=== PATIENT | male | born 1980 | race Hispanic/Latino ===

== ENCOUNTER 2021-09-28 09:57 | Emergency (ER) | payer SELFPAY ==
[2021-09-28] MEDS ORDERED: IBUPROFEN 400 MG TAB ONE (10:58)
--- NOTE | 2021-09-28 11:17 | RAD REPORT ---
EXAM DESCRIPTION: RAD - Wrist Left 3 View - 09/28/2021 11:09 am CLINICAL HISTORY: Left wrist pain FINDINGS: No fracture or dislocation is seen. No bone or joint abnormality seen
--- NOTE | 2021-09-28 11:38 | EDPHYS ---
Physician Documentation [facility] Name: Deonte Vera Age: 41 yrs Sex: Male : 1980 Arrival Date: 09/28/2021 Time: 10:13 Bed 10 Private MD: Mukul Eli HPI: 09/28 10:50 This 41 yrs old Male presents to ER via Ambulatory with complaints of Wrist cp Pain. 10:50 The patient or guardian reports pain, tenderness. Context: resulted from an unknown cp cause. 10:50 Onset: The symptoms/episode began/occurred 2 week(s) ago. cp 10:50 Modifying factors: the symptoms are aggravated by movement. Associated signs and cp symptoms: Pertinent negatives: cyanosis distally, decreased sensation distally. Patient c/o pain, tenderness to radial side of left wrist. Historical: - Allergies: 10:17 No Known Allergies; ap3 - Home Meds: 10:17 None [Active]; ap3 - PMHx: 10:17 None; ap3 - PSHx: 10:17 None; ap3 - Immunization history:: Client reports having NOT received the Covid vaccine. Last tetanus immunization: not immunized. - Social history:: Smoking status: Patient reports the use of cigarette tobacco products, denies chronic smoking, but will smoke occasionally. ROS: 10:55 MS/extremity: Positive for pain, swelling, tenderness, of the left wrist, Negative for cp injury or acute deformity, decreased range of motion, paresthesias. 10:55 Constitutional: Negative for fever. cp 10:55 Skin: Negative for cellulitis, rash. 10:55 Neuro: Negative for numbness, tingling, weakness. 10:55 All other systems are negative. Exam: 11:00 Constitutional: The patient appears in no acute distress, alert, awake, well developed, cp well nourished. 11:00 Musculoskeletal/extremity: Extremities: grossly normal except: noted in the radial side cp of left wrist: pain, tenderness, mild swelling along extensor tendon, There is no evidence of decreased ROM, erythema, rash, ROM: limited passive range of motion due to pain, in the left wrist, Pulses: noted to be 2+ in the left radial artery. 11:00 Skin: cellulitis, is not appreciated, no rash present. Vital Signs: 10:15 BP 109 / 72; Pulse 78; Resp 17; Temp 97.7; Pulse Ox 99% on R/A; Weight 83.91 kg; Height ap3 5 ft. 8 in. (172.72 cm); Pain 7/10; 11:43 BP 116 / 69; Pulse 68; Resp 18; Pulse Ox 98% on R/A; ww 10:15 Body Mass Index 28.13 (83.91 kg, 172.72 cm) ap3 Procedures: 11:45 Splinting: Splint applied to left wrist using wrist splint, applied by nurse. Examined cp by me, post splint application: neurovascular intact, Patient tolerated well. MDM: 10:24 Patient medically screened. nika 11:00 Differential diagnosis: tendonitis, sprain, strain, fracture. cp 11:37 Data reviewed: vital signs, nurses notes, radiologic studies, plain films. cp 11:37 Test interpretation: by ED physician or midlevel provider: plain radiologic studies. cp Counseling: I had a detailed discussion with the patient and/or guardian regarding: the historical points, exam findings, and any diagnostic results supporting the discharge/admit diagnosis, radiology results, to return to the emergency department if symptoms worsen or persist or if there are any questions or concerns that arise at home. Response to treatment: the patient's symptoms have mildly improved after treatment, and as a result, I will discharge patient. 09/28 10:39 Order name: XRAY Wrist LEFT 3 view; Complete Time: 11:21 cp 09/28 11:21 Interpretation: Report reviewed. cp 09/28 11:25 Order name: Splint - Wrist; Complete Time: 11:42 cp Administered Medications: 11:02 Drug: Ibuprofen 800 mg Route: PO; ww 11:45 Follow up: Response: No adverse reaction; Marked relief of symptoms ww Disposition: 11:45 Chart complete. cp Disposition Summary: 09/28/21 11:38 Discharge Ordered Location: Home cp Problem: new cp Symptoms: have improved cp Condition: Stable cp Diagnosis - Pain in left wrist cp Followup: cp - With: Jose Dejesus MD - When: 1 week - Reason: pain continues Discharge Instructions: - Discharge Summary Sheet cp - Wrist Pain, Adult cp Forms: - Medication Reconciliation Form cp - Thank You Letter cp - Antibiotic Education cp - Prescription Opioid Use cp Prescriptions: - Diclofenac Sodium 75 mg Oral Tablet Sustained Release - take 1 tablet by ORAL route 2 times per day; 30 tablet; Refills: 0, Product cp Selection Permitted Signatures: Dispatcher [employer] Mukul Jaeger MD MD cha Page, Corey, PA PA cp Prokisch, Amanda RN RN ap3 Malissa Bradley RN RN ww
--- NOTE | 2021-09-28 11:38 | ER ---
Nurse's Notes [facility] Name: Deonte Vera Age: 41 yrs Sex: Male : 1980 Arrival Date: 09/28/2021 Time: 10:13 Bed 10 Private MD: Diagnosis: Pain in left wrist Presentation: 09/28 10:15 Chief complaint: Patient states: his left wrist has been swollen X's 2 weeks. patient ap3 reports that he does not recall hitting it or falling onto his left wrist. Coronavirus screen: At this time, the client does not indicate any symptoms associated with coronavirus-19. Ebola Screen: No symptoms or risks identified at this time. Initial Sepsis Screen: Does the patient meet any 2 criteria? No. Patient's initial sepsis screen is negative. Does the patient have a suspected source of infection? No. Patient's initial sepsis screen is negative. Risk Assessment: Do you want to hurt yourself or someone else? Patient reports no desire to harm self or others. Onset of symptoms was September 14, 2021. 10:15 Method Of Arrival: Ambulatory ap3 10:15 Acuity: ANDREW 4 ap3 Triage Assessment: 10:17 General: Appears in no apparent distress. Behavior is calm, cooperative. Pain: ap3 Complains of pain in dorsal aspect of left forearm and left wrist Pain began approx 2 weeks ago. Neuro: Level of Consciousness is awake, alert, obeys commands, Oriented to person, place, time, situation, Appropriate for age. Respiratory: Airway is patent Respiratory effort is even, unlabored. Historical: - Allergies: 10:17 No Known Allergies; ap3 - Home Meds: 10:17 None [Active]; ap3 - PMHx: 10:17 None; ap3 - PSHx: 10:17 None; ap3 - Immunization history:: Client reports having NOT received the Covid vaccine. Last tetanus immunization: not immunized. - Social history:: Smoking status: Patient reports the use of cigarette tobacco products, denies chronic smoking, but will smoke occasionally. Screenin:18 Abuse screen: Denies threats or abuse. Nutritional screening: No deficits noted. ap3 Tuberculosis screening: No symptoms or risk factors identified. Fall Risk None identified. Assessment: 11:02 General: Appears in no apparent distress. comfortable, well groomed, well developed, ww Behavior is calm, cooperative, appropriate for age. Pain: Complains of pain in dorsal aspect of left forearm and left wrist. Neuro: Level of Consciousness is awake, alert, obeys commands, Oriented to person, place, time, situation, Appropriate for age Moves all extremities. Gait is steady, Speech is normal. Cardiovascular: Denies chest pain, lightheadedness, shortness of breath, Capillary refill < 3 seconds Patient's skin is warm and dry. Respiratory: Airway is patent Respiratory effort is even, unlabored, Respiratory pattern is regular, symmetrical. GI: No deficits noted. No signs and/or symptoms were reported involving the gastrointestinal system. : No deficits noted. No signs and/or symptoms were reported regarding the genitourinary system. EENT: No deficits noted. No signs and/or symptoms were reported regarding the EENT system. Derm: No deficits noted. No signs and/or symptoms reported regarding the dermatologic system. Skin is intact, is healthy with good turgor, Skin is pink, warm \T\ dry. Musculoskeletal: Swelling present in dorsal aspect of left forearm and left wrist. Vital Signs: 10:15 BP 109 / 72; Pulse 78; Resp 17; Temp 97.7; Pulse Ox 99% on R/A; Weight 83.91 kg; Height ap3 5 ft. 8 in. (172.72 cm); Pain 7/10; 11:43 BP 116 / 69; Pulse 68; Resp 18; Pulse Ox 98% on R/A; ww 10:15 Body Mass Index 28.13 (83.91 kg, 172.72 cm) ap3 ED Course: 10:13 Patient arrived in ED. rg4 10:17 Triage completed. ap3 10:18 Arm band placed on right wrist. ap3 10:22 Mukul Gomez PA is PHCP. cp 10:22 Mukul Guerrier MD is Attending Physician. cp 10:25 Malissa Bradley RN is Primary Nurse. ww 11:02 Patient has correct armband on for positive identification. Bed in low position. ww 11:02 Call light in reach. ww 11:09 XRAY Wrist LEFT 3 view In Process Unspecified. EDMS 11:37 Jose Dejesus MD is Referral Physician. cp 11:42 No provider procedures requiring assistance completed. Patient did not have IV access ww during this emergency room visit. applied left wrist splint. cap refill less than 3, able to move fingers. Administered Medications: 11:02 Drug: Ibuprofen 800 mg Route: PO; ww 11:45 Follow up: Response: No adverse reaction; Marked relief of symptoms ww Outcome: 11:38 Discharge ordered by . maria eugenia 11:51 Discharged to home ambulatory. ww 11:51 Condition: good 11:51 Discharge instructions given to patient, Instructed on discharge instructions, follow up and referral plans. medication usage, safety practices, Demonstrated understanding of instructions, follow-up care, medications, splint care, Prescriptions given X 1. 11:51 Patient left the ED. ww Signatures: Dispatcher [employer] EDMS Mukul Gomez PA PA cp Garcia, Rubi rg4 Shanon Streeter RN RN ap3 Malissa Bradley, RN RN
[2021-09-28 12:00] VITALS: TEMP 97.7
[2021-09-28 12:02] VITALS: BP 116/69; O2SAT 98
== END 2021-09-28 11:51 | disposition home or self-care (01) ==
LOC: ER 09:57
DX: M25.532 Pain in left wrist (principal); F17.210 Nicotine dependence, cigarettes, uncomplicated
CPT/HCPCS: 99284

== ENCOUNTER → 2023-12-25 | Emergency (ER) | payer SELFPAY ==
[~2023-12-25] MED LIST: FAMOTIDINE 20 MG/2 ML VIAL IV ONE; NA CHLORIDE 0.9% 1,000 ML ONE; ONDANSETRON 4 MG/2 ML VIAL ONE
[2023-12-25 12:31] LABS: Absolute Basophils 0.1 K/uL (0-0.5); Absolute Eosinophils 0.2 K/uL (0-0.5); Absolute Lymphocytes (CBC) 1.4 K/uL (0.7-4.9); Absolute Monocytes 0.6 K/uL (0.1-1.3); Absolute Neutrophil 10.7 K/uL (1.8-8.0); Basophils % 0.4 % (0-1.3); Eosinophils % 1.7 % (0-4.4); Hematocrit 44.1 % (39.6-49.0); Hemoglobin 15.3 g/dL (13.6-17.9); Lymphocytes % 10.9 % (15.3-44.8); MCH 31.7 pg (27.0-35.0); MCHC 34.6 g/dL (32.0-36.0); MCV 91.6 fL (80-100); Monocytes % 4.8 % (3.3-12.3); Neutrophils % 82.2 % (41.7-73.7); Platelets 201 thou/uL (152-406); RBC Red Blood Cell Count 4.82 M/uL (4.33-5.43); Red Cell Distribution Width 13.3 % (12.1-15.2)
[2023-12-25 12:48] LABS: Albumin 3.8 g/dL (3.4-5.0); Anion Gap 8.9 mEq/L (5.0-15.0); Bilirubin Total 0.7 mg/dL (0.2-1.0); Globulin 3.7 g/dL (2.3-3.5); Protein, Total 7.5 g/dL (6.4-8.2)
[2023-12-25 12:56] LABS: Potassium 3.9 mEq/L (3.5-5.1)
--- NOTE | 2023-12-25 13:09 | RAD REPORT ---
EXAM DESCRIPTION: CT - Abdomen Pelvis W Contrast - 12/25/2023 12:43 pm CLINICAL HISTORY: ABD PAIN COMPARISON: No comparisons TECHNIQUE: Thin cut axial CT imaging of the abdomen and pelvis was performed following intravenous a dministration of 100 mL Isovue 300. Multiplanar reformats were generated and reviewed. All CT scans are performed using dose optimization technique as appropriate and may include automated exposure control or mA/KV adjustment according to patient size. FINDINGS: No suspicious findings in the lung bases. The liver, spleen, adrenal glands, and pancreas show no suspicious findings. Gallbladder and biliary tree are also without suspicious finding. Symmetric renal function is seen with no hydronephrosis or suspicious renal mass. No dilated bowel loops or bowel wall thickening. Appendix is unremarkable. No free air, free fluid or inflammatory stranding. No hernia, mass or bulky lymphadenopathy. The urinary bladder is without sig nificant finding. No suspicious bony findings. IMPRESSION: No acute intra-abdominal process.
--- NOTE | 2023-12-25 13:47 | EDPHYS ---
Physician Documentation [facility] Name: Deonte Vera Age: 43 yrs Sex: Male : 1980 Arrival Date: 12/25/2023 Time: 11:56 Bed DX3 Private MD: ED Physician Nestor Gagnon HPI: 12/24 12:08 This 43 yrs old Male presents to ER via Ambulatory with complaints of ms3 Abdominal Pain. 12:08 43-year-old male with no past medical history presents to the emergency department for ms3 umbilical abdominal pain that began 2 days ago and became worse last night. Patient states he vomited 2 times today. Patient denies alleviating or inciting factors. Patient denies shortness of breath, chest pain, fevers, chills. Historical: - Allergies: 12:06 No Known Allergies; iw - PMHx: 12:06 None; iw - PSHx: 12:06 None; iw - Immunization history:: Adult Immunizations unknown. - Social history:: Smoking status: Patient denies any tobacco usage or history of. ROS: 12:08 Constitutional: Negative for fever, and chills. Neck: Negative for injury, pain, and ms3 swelling, Cardiovascular: Negative for chest pain, and palpitations. Respiratory: Negative for shortness of breath, cough, wheezing, and pleuritic chest pain, MS/Extremity: Negative for injury and deformity, Skin: Negative for injury, rash, and discoloration, 12:08 Abdomen/GI: Positive for abdominal pain, nausea and vomiting, Exam: 12:08 Constitutional: This is a well developed, well nourished patient who is awake, alert, ms3 and in no acute distress. Head/Face: Normocephalic, atraumatic. Neck: Trachea midline, no cervical lymphadenopathy. Supple, full range of motion without nuchal rigidity, or vertebral point tenderness. No Meningismus. Chest/axilla: Normal chest wall appearance and motion. Nontender with no deformity. Cardiovascular: Regular rate and rhythm with a normal S1 and S2. No gallops, murmurs, or rubs. Normal PMI, no JVD. No pulse deficits. Respiratory: Lungs have equal breath sounds bilaterally, clear to auscultation and percussion. No rales, rhonchi or wheezes noted. No increased work of breathing, no retractions or nasal flaring. 12:08 Abdomen/GI: Inspection: abdomen appears normal, Bowel sounds: normal, Palpation: moderate abdominal tenderness, in the right lower quadrant, Vital Signs: 12:05 BP 142 / 88; Pulse 80; Resp 18; Temp 97.2; Pulse Ox 99% ; Weight 83.91 kg; Height 5 ft. iw 8 in. ; 14:08 BP 134 / 87; Pulse 74; Resp 16; Pulse Ox 98% ; iw 12:05 Body Mass Index 28.13 (83.91 kg, 172.72 cm) iw MDM: 12:08 Differential diagnosis: appendicitis, Cholelithiasis, non-specific abd pain. ms3 12:34 Patient medically screened. ms3 13:47 Data reviewed: vital signs, nurses notes, lab test result(s), radiologic studies, and ms3 as a result, I will discharge patient. I considered the following discharge prescriptions or medication management in the emergency department Medications were administered in the Emergency Department. See MAR. Counseling: I had a detailed discussion with the patient and/or guardian regarding the historical points, exam findings, and any diagnostic results supporting the discharge/admit diagnosis, lab results, radiology results, the need for outpatient follow up, to return to the emergency department if symptoms worsen or persist or if there are any questions or concerns that arise at home. Response to treatment: the patient's symptoms have markedly improved after treatment, and as a result, I will discharge patient. Special discussion: Based on the patient's Hx, exam, and Dx evaluation, there is no indication for emergent surgery or inpatient Tx. It is understood by the patient/guardian that if the Sx's persist or worsen they need to return immediately for re-evaluation. ED course: Discussed labs, CT scan findings with patient. Patient to follow-up with primary care physician in 2 to 3 days. Patient understands and agrees with plan. All questions were answered. Return precautions discussed include worsening symptoms, or any other concerns. 12/24 12:08 Order name: CBC with Diff; Complete Time: 13: ms3 12/24 12:08 Order name: CMP; Complete Time: 13:27 ms3 12/24 12:08 Order name: CT Abd/Pelvis - IV Contrast Only; Complete Time: ms3 12/24 12:08 Order name: IV Saline Lock; Complete Time: 12:25 ms3 12/24 12:08 Order name: Labs collected and sent; Complete Time: 12:25 ms3 Administered Medications: 12:24 Drug: Ondansetron IVP 4 mg IVP once; over 2 minutes Route: IVP; Site: right wrist; iw 13:00 Follow up: Response: No adverse reaction iw 12:25 Drug: NS 0.9% IV 1000 ml IV at 1 bolus Per protocol; 1000 mL bolus Route: IV; Rate: 1 iw bolus; Site: right wrist; 13:33 Follow up: IV Status: Completed infusion iw 12:25 Drug: Famotidine IVP 20 mg IVP once; dilute with 10 mL 0.9% NaCl; give over 2 minutes iw Route: IVP; Site: right wrist; 13:00 Follow up: Response: No adverse reaction iw Disposition Summary: 12/25/23 13:47 Discharge Ordered Notes: Location: Home ms3 Condition: Stable ms3 Diagnosis - Lower abdominal pain, unspecified ms3 Followup: ms3 - With: Gabriel Haney DO - When: 2 - 3 days - Reason: Recheck today's complaints Discharge Instructions: - Discharge Summary Sheet ms3 - Abdominal Pain, Adult ms3 Forms: - Work release form iw - Medication Reconciliation Form ms3 - Thank You Letter ms3 - Antibiotic Education ms3 - Prescription Opioid Use ms3 - Patient Portal Instructions ms3 - Leadership Thank You Letter ms3 Signatures: Dispatcher [employer] Nori Gustafson, RN Nestor Matthew DO DO ms3
--- NOTE | 2023-12-25 13:47 | ER ---
Nurse's Notes [facility] Name: Deonte Vera Age: 43 yrs Sex: Male : 1980 Arrival Date: 12/25/2023 Time: 11:56 Bed DX3 Private MD: Diagnosis: Lower abdominal pain, unspecified Presentation: 12/24 12:05 Chief complaint: Patient states: Mid-abdominal pain since last night, also reports N/V, iw denies fever or diarrhea. Coronavirus screen: Vaccine status: Patient reports being unvaccinated. Ebola Screen: No symptoms or risks identified at this time. Initial Sepsis Screen: Does the patient meet any 2 criteria? No. Patient's initial sepsis screen is negative. Does the patient have a suspected source of infection? No. Patient's initial sepsis screen is negative. Risk Assessment: Do you want to hurt yourself or someone else? Patient reports no desire to harm self or others. Onset of symptoms was December 25, 2023. 12:05 Method Of Arrival: Ambulatory iw 12:05 Acuity: ANDREW 3 iw Triage Assessment: 12:07 General: Appears in no apparent distress. Behavior is calm, cooperative. Pain: iw Complains of pain in umbilical area. GI: Reports lower abdominal pain, upper abdominal pain, nausea, vomiting. Historical: - Allergies: 12:06 No Known Allergies; iw - PMHx: 12:06 None; iw - PSHx: 12:06 None; iw - Immunization history:: Adult Immunizations unknown. - Social history:: Smoking status: Patient denies any tobacco usage or history of. Screenin:26 [facility] ED Fall Risk Assessment (Adult) History of falling in the last 3 months, iw including since admission No falls in past 3 months (0 pts) Confusion or Disorientation No (0 pts) Intoxicated or Sedated No (0 pts) Impaired Gait No (0 pts) Mobility Assist Device Used No (0 pt) Altered Elimination No (0 pt) Score/Fall Risk Level 0 - 2 = Low Risk. Abuse screen: Denies threats or abuse. Denies injuries from another. Nutritional screening: No deficits noted. Tuberculosis screening: No symptoms or risk factors identified. Assessment: 12:25 General: Appears in no apparent distress. Behavior is calm, cooperative. Pain: iw Complains of pain in abdomen Quality of pain is described as burning. Neuro: Level of Consciousness is awake, alert, obeys commands, Oriented to person, place, time, situation, Moves all extremities. Full function. Cardiovascular: Patient's skin is warm and dry. Respiratory: Respiratory effort is even, unlabored, Respiratory pattern is regular. GI: Abdomen is non-distended, Abd is soft X 4 quads Reports upper abdominal pain, nausea. Derm: Skin is intact, is healthy with good turgor. Musculoskeletal: Range of motion: intact in all extremities. Vital Signs: 12:05 BP 142 / 88; Pulse 80; Resp 18; Temp 97.2; Pulse Ox 99% ; Weight 83.91 kg; Height 5 ft. iw 8 in. ; 14:08 BP 134 / 87; Pulse 74; Resp 16; Pulse Ox 98% ; iw 12:05 Body Mass Index 28.13 (83.91 kg, 172.72 cm) iw ED Course: 11:57 Patient arrived in ED. rg4 11:58 Nestor Gagnon DO is Attending Physician. ms3 12:06 Triage completed. iw 12:07 Arm band placed on Patient placed in waiting room, Patient notified of wait time. iw 12:15 Initial lab(s) drawn, by ED staff, sent to lab. Inserted saline lock: 20 gauge in right iw wrist, using aseptic technique. Blood collected. 12:24 Nori Good, RN is Primary Nurse. iw 12:44 CT Abd/Pelvis - IV Contrast Only In Process Unspecified. EDMS 13:46 Gabriel Haney DO is Referral Physician. ms3 14:09 No provider procedures requiring assistance completed. IV discontinued, intact, iw bleeding controlled, No redness/swelling at site. Pressure dressing applied. Administered Medications: 12:24 Drug: Ondansetron IVP 4 mg IVP once; over 2 minutes Route: IVP; Site: right wrist; iw 13:00 Follow up: Response: No adverse reaction iw 12:25 Drug: NS 0.9% IV 1000 ml IV at 1 bolus Per protocol; 1000 mL bolus Route: IV; Rate: 1 iw bolus; Site: right wrist; 13:33 Follow up: IV Status: Completed infusion iw 12:25 Drug: Famotidine IVP 20 mg IVP once; dilute with 10 mL 0.9% NaCl; give over 2 minutes iw Route: IVP; Site: right wrist; 13:00 Follow up: Response: No adverse reaction iw Medication: 12:27 VIS not applicable for this client. iw Outcome: 13:47 Discharge ordered by ms3 14:09 Discharged to home ambulatory, iw 14:09 Condition: good 14:09 Discharge instructions given to patient, Instructed on discharge instructions, follow up and referral plans. Demonstrated understanding of instructions, follow-up care, 14:10 Patient left the ED. iw Signatures: Dispatcher [employer] Nori Gustafson RN RN iw Hilaria Starks rg4 Nestor Gagnon DO DO ms3 Corrections: (The following items were deleted from the chart) 19:10 16:00 BP 134 / 87; Pulse 74bpm; Resp 16bpm; Pulse Ox 98%; iw iw
[2023-12-25 14:26] VITALS: BP 142/88; TEMP 97.2; O2SAT 99
== END ==
LOC: ER 11:56
DX: R10.31 Right lower quadrant pain (principal); R11.2 Nausea with vomiting, unspecified
CPT/HCPCS: 36415; 74177; 80053; 85025; 96361; 96374; 96375; 99284; J2405; J7030; Q9967